=== PATIENT | female | born 2000 | race Caucasian/White ===

== ENCOUNTER 2022-10-04 19:15 | Emergency (ER) | payer SELFPAY | END 2022-10-04 20:20 | disposition home or self-care (01) | LOC: CSHERS 19:15 | DX: J02.9 Acute pharyngitis, unspecified (principal) | CPT/HCPCS: 87081; 87430; 99283 ==

== ENCOUNTER 2022-10-10 21:52 | Emergency (ER) | payer SELFPAY | END 2022-10-10 22:57 | disposition home or self-care (01) | LOC: CSHERS 21:52 | DX: A60.04 Herpesviral vulvovaginitis (principal) | CPT/HCPCS: 99283 ==

== ENCOUNTER 2023-01-16 02:32 | Emergency (ER) | payer SELFPAY ==
[2023-01-16 04:03] LABS: SARS-CoV-2 NAA Rapid Test Not Detected (NotDetected)
== END 2023-01-16 04:47 | disposition home or self-care (01) ==
LOC: CSHERS 02:32
DX: J18.0 Bronchopneumonia, unspecified organism (principal); Z20.822 Contact with and (suspected) exposure to COVID-19
CPT/HCPCS: 71045